=== PATIENT | male | born 1945 | race Caucasian/White ===

== ENCOUNTER 2017-01-17 12:32 | Emergency (ER) | payer OTHER ==
--- NOTE | ~2017-01-17 | EKG ---
PATIENT: LAZARO MCKINNON UNIT #: [id number] Ventricular Rate: 103 BPM Atrial Rate: 103 BPM P-R Interval: 184 ms QRS Duration: 88 ms Q-T Interval: 332 ms QTC Calculation(Bezet): 434 ms P Milfay: 62 degrees Calculated R Milfay: 15 degrees Calculated T Milfay: 42 degrees Diagnosis Line: Sinus tachycardia Diagnosis Line: Otherwise normal ECG Diagnosis Line: When compared with ECG of 30-JAN-2011 15:24, Diagnosis Line: No significant change was found Diagnosis Line: Confirmed by GABY GONGORA MD ([id number]) on 01/18/2017 Diagnosis Line: 6:01:23 PM INTERPRETING MD: ROLAN LOUIS
[~2017-01-17 12:32] MED LIST: AMOX TR-K CLV 81 TA1 PO; CITRUCEL PO; FLAGYL PO; FLONASE 0.05% N16 G1; FLOVENT DI50 MCG/DIS IH; GLUCOPHAGE500 M1 PO; HYOMAX-SR0.375 MG PO; HYOSCYAMINE0.375 M5 PO; LEVAQUIN PO; SIMVASTATIN40 MG PO; ZOLOFT100 MG PO
[2017-01-17 14:01] LABS: BASOPHIL# 0.1 X10e3 (0-0.3); BASOPHIL% 0.5 % (0-2.5); EOSINOPHIL% 0.1 % (0.0-7.0); HEMATOCRIT 41.6 % (38.0-50.0); HEMOGLOBIN 13.6 gm/dL (13.0-16.0); LYMPHOCYTE# 1.1 X10e3 (1.0-3.5); LYMPHOCYTE% 6.8 % (17.0-45.0); MEAN CORPUSCULAR HEMOGLOBIN 28.9 PG (28-34); MEAN CORPUSCULAR HGB CONC 32.8 g/dL (30-36); MEAN PLATELET VOLUME 9.2 FL (6.5-11.5); MONOCYTE# 1.2 X10e3 (0-1.0); MONOCYTE% 7.2 % (3.0-12.0); NEUTROPHIL# 14.2 X10e3 (1.5-7.1); NEUTROPHIL% 85.4 % (40-75); PLATELET COUNT 183 X10e3 (140-420); RED BLOOD COUNT 4.72 X10e (3.90-5.60); RED CELL DISTRIBUTION WIDTH 12.8 % (11.0-15.5); WHITE BLOOD COUNT 16.6 X10e3 (4.0-10.5)
[2017-01-17 14:12] LABS: DIFF IND YES
[2017-01-17 14:22] LABS: ALBUMIN SERUM 3.8 g/dL (3.5-5.0); BILIRUBIN, DIRECT 0.2 mg/dL (0.0-0.2); BILIRUBIN,INDIRECT 0.8 mg/dL (0.0-0.9); BUN/CREATININE RATIO 13.75; CALCIUM SERUM 8.5 mg/dL (8.4-10.2); CREATININE SERUM 0.8 mg/dL (0.6-1.4); GLOM FILT RATE Estimated 88.7 mL/min (>60); PLATELET ESTIMATE NORMAL (NORMAL); POTASSIUM 3.9 mmol/L (3.5-5.1); PROTEIN TOTAL SERUM 7.1 g/dL (6.0-8.3); RBC NORMAL YES
[2017-01-17 14:26] LABS: POC - CKMB <1.0 ng/mL (0.0-7.9); POC - TROPONIN <0.05 ng/mL (<=0.05)
[2017-01-17 14:28] LABS: URINE SOURCE CLEAN CATCH
[2017-01-17 14:39] LABS: URINE APPEARANCE CLEAR; URINE BILIRUBIN NEG (NEG); URINE BLOOD NEG (NEG); URINE COLOR YELLOW; URINE GLUCOSE 250 MG/DL (NEG); URINE KETONE 1+ (NEG); URINE LEUKOCYTE ESTERASE 1+ (NEG); URINE NITRATE NEG (NEG); URINE PROTEIN 1+ (NEG); URINE SPECIFIC GRAVITY 1.025 (1.003-1.035)
[2017-01-17 14:40] LABS: CULTURE INDICATED? YES; URBCS1 AUWI 0-2 /[HPF] (0-2); URINE BACTERIA AUWI NEG (NEGATIVE); URINE SQUAMOUS EPITHELIAL CELL NONE SEEN /[HPF]; UWBCS1 AUWI 25-50 (0-5)
== END 2017-01-17 16:10 | disposition home or self-care (01) ==
LOC: CED 12:32
PROVIDERS: Emergency Medicine
DX: N12 Tubulo-interstitial nephritis, not specified as acute or chronic (principal); N30.00 Acute cystitis without hematuria; E11.9 Type 2 diabetes mellitus without complications; Z79.899 Other long term (current) drug therapy; Z79.84 Long term (current) use of oral hypoglycemic drugs
CPT/HCPCS: 36415; 80048; 80076; 81003; 82553; 83605; 84484; 85025; 87040; 87086; 87088; 87186; 93005; 96361; 96365; 99284; J0696

== ENCOUNTER → 2017-02-06 | Outpatient (CLI) | payer OTHER ==
--- NOTE | ~2017-02-06 | US77 ---
[facility] A Service of [facility] & [facility] / [facility] RADIOLOGY TEXT RESULTS PATIENT: LAZARO MCKINNON LOCATION: [facility] : 41 UNIT #: [id number] AGE: [address]: Camacho Rudd MD SEX: M ORDER DR: [id number] [facility] [address] [place], [place] [address] [id number] O MR#: [id number] Acc #: [id number] NAME: LAZARO MCKINNON : 1945 SEX: M STUDY DATE/TIME: 02/06/2017 13:02 UNIT: [facility] ROOM: STUDY DESCRIPTION: US Kidney Bilateral Complete Attending Physician: Camacho Rudd M.D. Referring Physician: Camacho Rudd M.D. Ordering Physician: Camacho Rudd M.D. Primary Care Physician: Leonard Tillman M.D. MEDICAL IMAGING REPORT This report is preliminary unless electronic signature is present EXAM Renal ultrasound 02/06/2017 HISTORY Frequent urinary tract infections for 1 year, cystitis. Patient currently on antibiotic therapy. FINDINGS The right kidney measures 10.2 cm while the left kidney measures 10.1 cm in longitudinal dimensions. There is no evidence of hydronephrosis or nephrolithiasis. No cystic or solid mass lesions were seen on either kidney and there is normal renal cortical echogenicity. Images of the bladder are normal. IMPRESSION 1. Negative renal ultrasound. 2. Images of the bladder are normal. Dictated by... Lloyd Puente M.D. THIS IS AN ELECTRONICALLY VERIFIED REPORT Lloyd Puente M.D. at 02/07/2017 8:29 AM YA/todd TD: 02/06/2017 18:33 JOB #: [id number] MEDICAL IMAGING REPORT Page 1 of 1 COPY
--- NOTE | ~2017-02-06 | CR7 ---
[facility] A Service of [facility] & [facility] RADIOLOGY TEXT RESULTS PATIENT: LAZARO MCKINNON LOCATION: [facility] : 41 UNIT #: [id number] AGE: [address]: Camacho Rudd MD SEX: M ORDER DR: [id number] [facility] [address] [place], [place] [address] [id number] O MR#: [id number] Acc #: [id number] NAME: LAZARO MCKINNON : 1945 SEX: M STUDY DATE/TIME: 02/06/2017 UNIT: [facility] ROOM: STUDY DESCRIPTION: CR Abdomen Single AP View Attending Physician: Camacho Rudd M.D. Referring Physician: Camacho Rudd M.D. Ordering Physician: Camacho Rudd M.D. Primary Care Physician: Leonard Tillman M.D. MEDICAL IMAGING REPORT This report is preliminary unless electronic signature is present EXAM Abdomen one-view 02/06/2017 13:06 hours HISTORY 71-year-old man with history of cystitis, recurrent urinary tract infections with burning during urination. Symptoms began 1 year ago. COMPARISON Renal ultrasound 02/06/2017. FINDINGS Supine views of the abdomen and pelvis were performed. The bowel gas pattern is unremarkable. There is no renal calcification over the kidneys or expected course of the ureters. There are lower left greater than right pelvic calcifications most consistent with phleboliths. There are no definite renal or ureteral calculi. There is degenerative change in the lumbar spine, sacroiliac joints and both hips. IMPRESSION 1. Nonspecific bowel gas pattern with no evidence obstruction. . 2. No definite renal or ureteral calculi. There are multiple pelvic phleboliths which appears similar to the CT abdomen of 04/04/2012. 3. Degenerative changes of the lower lumbar spine, both sacroiliac joints and hip joints similar to CT scan 04/04/2012. Dictated by... Lynne Mccallum M.D. THIS IS AN ELECTRONICALLY VERIFIED REPORT Lynne Mccallum M.D. at 02/06/2017 8:03 PM SMM/cmm TD: 02/06/2017 15:[address] [facility]. [facility] A Service of [facility] & [facility] RADIOLOGY TEXT RESULTS PATIENT: LAZARO MCKINNON LOCATION: [facility] #: [id number] : 41 UNIT #: [id number] AGE: [address]: Camacho Rudd MD SEX: M ORDER DR: JOB #: [id number] MEDICAL IMAGING REPORT Page 1 of 1 COPY
== END | disposition home or self-care (01) ==
LOC: CGUS 12:34
DX: N30.90 Cystitis, unspecified without hematuria (principal); M47.896 Other spondylosis, lumbar region
CPT/HCPCS: 74000; 76770